=== PATIENT | male | born 1975 | race Caucasian/White ===

== ENCOUNTER 2021-06-10 21:29 | Emergency (ER) | payer OTHER ==
[~2021-06-10] VITALS: Ht 182.9 cm; Wt 114.8 kg
[~2021-06-10 21:29] MED LIST: PROT40 PO
[2021-06-10 21:53] VITALS: BP 133/71
[2021-06-10] MEDS ORDERED: ONDANSETRON HCL 4MG/2ML INJ IV STA (22:45)
[2021-06-10 23:25] LABS: BASOPHILS % 0.5 % (0.0-2.0); EOSINOPHILS % 2.3 % (0.0-5.0); HEMATOCRIT. 40.3 % (42.0-52.0); HEMOGLOBIN. 13.6 g/dL (14.0-18.0); LYMPHOCYTES % 48.1 % (20.0-50.0); MEAN CORPUSCULAR HEMOGLOBIN 33.7 pg (28.0-32.0); MEAN CORPUSCULAR VOLUME 99.6 fL (80.0-94.0); MEAN PLATELET VOLUME 10.3 fl (7.4-10.4); MONOCYTES % 7.1 % (2.0-8.0); PLATELET 61 x1000/uL (130-400); RED BLOOD CELL COUNT 4.05 mill/uL (4.7-6.1); RED CELL DISTRIBUTION WIDTH 14.7 % (11.6-14.6)
[2021-06-10 23:31] LABS: CHLORIDE 108 mEq/L (98-107)
[2021-06-10 23:34] LABS: INR 1.6; PROTHROMBIN TIME 16.1 sec (9.6-11.0)
== END 2021-06-11 01:58 | disposition home or self-care (01) ==
LOC: ER 21:29
DX: R10.9 Unspecified abdominal pain (principal); K62.5 Hemorrhage of anus and rectum; D64.9 Anemia, unspecified; D69.6 Thrombocytopenia, unspecified; F10.10 Alcohol abuse, uncomplicated; Y90.9 Presence of alcohol in blood, level not specified; Z98.890 Other specified postprocedural states; Z87.891 Personal history of nicotine dependence
CPT/HCPCS: 36415; 71045; 80053; 82270; 83690; 85025; 85610; 86850; 86900; 86901; 96374; 99284; J2405

== ENCOUNTER 2022-05-23 20:30 | Inpatient (IN) | payer MEDICAID, OTHER ==
[~2022-05-23] VITALS: Ht 182.9 cm; Wt 97.5 kg
[2022-05-23] MEDS ORDERED: ONDANSETRON HCL 4MG/2ML INJ IV STA (23:26)
[2022-05-23] MEDS ORDERED: MAGNESIUM/ALUMINUM HYDROXIDE/SIMETHICONE 30ML UDC PO STA (23:26)
[2022-05-23] MEDS ORDERED: SODIUM CHLORIDE 0.9% 1,000 ML IV ONE (23:30)
[2022-05-23 23:54] LABS: BASOPHILS % 1.1 % (0.0-2.0); EOSINOPHILS % 2.5 % (0.0-5.0); HEMATOCRIT. 32.6 % (42.0-52.0); HEMOGLOBIN. 11.5 g/dL (14.0-18.0); LYMPHOCYTES % 45.4 % (20.0-50.0); MEAN CORPUSCULAR HEMOGLOBIN 35.5 pg (28.0-32.0); MEAN PLATELET VOLUME 10.4 fl (7.4-10.4); RED BLOOD CELL COUNT 3.23 mill/uL (4.7-6.1); RED CELL DISTRIBUTION WIDTH 15.7 % (11.6-14.6)
[2022-05-23 23:55] LABS: CLARITY URINE CLEAR (CLEAR); COLOR URINE DARK YELLOW (YELLOW); KETONES URINE TRACE (NEGATIVE); LEUKOCYTE ESTERASE URINE NEGATIVE (NEGATIVE); NITRITE URINE NEGATIVE (NEGATIVE); OCCULT BLOOD URINE NEGATIVE (NEGATIVE); PH URINE 5.5 (4.5-8.0); PROTEIN URINE NEGATIVE (NEGATIVE); SPECIFIC GRAVITY URINE 1.017 (1.005-1.030)
[2022-05-24 00:05] LABS: CHLORIDE 113 mEq/L (98-107)
[2022-05-24 00:11] LABS: *AMPHETAMINES SCREEN URINE NEGATIVE (NEGATIVE); *BARBITURATES SCREEN URINE NEGATIVE (NEGATIVE); *BENZODIAZEPINES SCREEN URINE NEGATIVE (NEGATIVE); *COCAINE SCREEN URINE NEGATIVE (NEGATIVE); CANNABINOID URINE SCREEN NEGATIVE (NEGATIVE); METHADONE URINE SCREEN NEGATIVE (NEGATIVE); OPIATES URINE SCREEN NEGATIVE (NEGATIVE); PHENCYCLIDINE URINE SCREEN NEGATIVE (NEGATIVE)
[2022-05-24 00:11] LABS: ETHANOL BLOOD 245 mg/dL
[2022-05-24] MEDS ORDERED: PANTOPRAZOLE SODIUM 40 MG/VIAL IV ONE (00:15)
[2022-05-24 00:21] LABS: PLATELET 49 x1000/uL (130-400)
[2022-05-24 00:25] LABS: PROTHROMBIN TIME 20.3 sec (9.6-11.0)
[2022-05-24] MEDS ORDERED: FUROSEMIDE 40MG/4ML VIAL IVP NR (04:20)
[2022-05-24] MEDS ORDERED: NA PHOS,M-B/NA PHOS,DI-BA ENEMA 118ML PR PRN (05:30)
[2022-05-24] MEDS ORDERED: MAGNESIUM/ALUMINUM HYDROXIDE/SIMETHICONE 30ML UDC PO PRN (05:30)
[2022-05-24] MEDS ORDERED: IPRATROPIUM/ALBUTEROL 0.5-3(2.5)MG/3ML NEB HHN PRN (05:30)
[2022-05-24] MEDS ORDERED: GUAIFENESIN 200MG/10ML SUGAR FREE UDC PO PRN (05:30)
[2022-05-24] MEDS ORDERED: ACETAMINOPHEN 325MG TABLET PO PRN ×2 (05:30)
[2022-05-24] MEDS ORDERED: HYDROCODONE/ACETAMINOPHEN 5/325MG TABLET PO PRN (05:30)
[2022-05-24] MEDS ORDERED: DOCUSATE SODIUM 100MG CAPSULE PO PRN (05:30)
[2022-05-24] MEDS ORDERED: HYDROCODONE/APAP 7.5/325MG 1 TAB TABLET PO PRN (05:30)
[2022-05-24] MEDS ORDERED: CLONIDINE 0.1MG TABLET PO PRN (05:30)
[2022-05-24] MEDS ORDERED: DIPHENHYDRAMINE 50MG/ML VIAL IV PRN (05:30)
[2022-05-24] MEDS ORDERED: NALOXONE HCL 0.4MG/ML VIAL IV PRN (06:00)
[2022-05-24 06:14] LABS: BASOPHILS % 0.5 % (0.0-2.0); EOSINOPHILS % 2.5 % (0.0-5.0); HEMATOCRIT. 31.4 % (42.0-52.0); MEAN CORPUSCULAR HEMOGLOBIN 35.7 pg (28.0-32.0); MEAN CORPUSCULAR VOLUME 101.6 fL (80.0-94.0); MEAN PLATELET VOLUME 9.9 fl (7.4-10.4); RED BLOOD CELL COUNT 3.09 mill/uL (4.7-6.1); RED CELL DISTRIBUTION WIDTH 15.3 % (11.6-14.6)
[2022-05-24 06:18] LABS: PLATELET 34 x1000/uL (130-400)
[2022-05-24 06:26] LABS: PHOSPHORUS 2.8 mg/dL (2.5-4.9)
[2022-05-24] MEDS: SODIUM CHLORIDE 0.9% 1,000 ML IV SCH ×2 (06:29→17:52)
[2022-05-24 06:54] LABS: CHLORIDE 110 mEq/L (98-107); LDL CHOLESTEROL 19 mg/dL (5-100); T4 FREE 1.14 ng/dL (0.76-1.46)
[2022-05-24 07:24] LABS: HDL CHOLESTEROL 30 mg/dL (40-59)
[2022-05-24] MEDS: ONDANSETRON HCL 4MG/2ML INJ IV PRN (08:57)
[2022-05-24] MEDS: FOLIC ACID 1MG TABLET PO SCH (09:59)
[2022-05-24] MEDS: THIAMINE HCL 100MG TABLET PO SCH (09:59)
[2022-05-24] MEDS: MULTIVITAMINS,THER W-MINERALS TABLET PO SCH (09:59)
[2022-05-24 11:19] LABS: PLATELET ESTIMATE MARKEDLY DECREASED
[2022-05-24 12:07] LABS: HEPATITIS B SURFACE ANTIGEN NEGATIVE
[2022-05-24] MEDS ORDERED: POTASSIUM CHLORIDE 20MEQ/PACKET PO NR ×2 (16:15→23:00)
[2022-05-24 16:50] VITALS: BP 110/65
[2022-05-24 17:00] VITALS: BP 127/69
[2022-05-24] MEDS ORDERED: LORAZEPAM 2MG/ML CPJ IV PRN (17:30)
[2022-05-24] MEDS: SUCRALFATE 1G TABLET PO SCH ×3 (17:52→21:24)
[2022-05-24] MEDS ORDERED: OCTREOTIDE 1,000 MCG in SODIUM CHLORIDE 0.9% 98 ML IV ONE (18:00)
[2022-05-24] MEDS ORDERED: MAGNESIUM 1 G PREMIX 100 ML IV NR (18:00)
[2022-05-24] MEDS: PANTOPRAZOLE SODIUM 40 MG/VIAL IV SCH (18:00)
[2022-05-24 20:00] VITALS: BP 130/71
[2022-05-24] MEDS ORDERED: PANTOPRAZOLE SODIUM 40 MG/VIAL IV SCH (21:00)
[2022-05-24 21:50] VITALS: BP 130/71
[2022-05-24 22:05] VITALS: BP 127/66
[2022-05-24 23:05] VITALS: BP 120/65
[2022-05-25] VITALS (14 sets, daily range): BP systolic 111–146; BP diastolic 50–85
[2022-05-25] MEDS: SODIUM CHLORIDE 0.9% 1,000 ML IV SCH ×3 (00:55→20:44)
[2022-05-25 03:36] LABS: BASOPHILS % 0.7 % (0.0-2.0); EOSINOPHILS % 2.2 % (0.0-5.0); HEMATOCRIT. 29.4 % (42.0-52.0); HEMOGLOBIN. 10.4 g/dL (14.0-18.0); LYMPHOCYTES % 31.6 % (20.0-50.0); MEAN CORPUSCULAR HEMOGLOBIN 36.2 pg (28.0-32.0); MEAN CORPUSCULAR VOLUME 102.3 fL (80.0-94.0); MEAN PLATELET VOLUME 10.3 fl (7.4-10.4); MONOCYTES % 4.9 % (2.0-8.0); NEUTROPHILS % 60.6 % (40.0-76.0); RED BLOOD CELL COUNT 2.87 mill/uL (4.7-6.1); RED CELL DISTRIBUTION WIDTH 15.1 % (11.6-14.6)
[2022-05-25 03:44] LABS: INR 1.8; PROTHROMBIN TIME 18.8 sec (9.6-11.0)
[2022-05-25 03:46] LABS: PLATELET 37 x1000/uL (130-400)
[2022-05-25 04:06] LABS: CHLORIDE 109 mEq/L (98-107)
[2022-05-25] MEDS: SUCRALFATE 1G TABLET PO SCH ×4 (07:40→20:41)
[2022-05-25] MEDS ORDERED: LACTULOSE 300 ML in WATER FOR IRRIGATION,STERILE 700 ML IR NR (08:00)
[2022-05-25] MEDS: FOLIC ACID 1MG TABLET PO SCH (09:00)
[2022-05-25] MEDS: FUROSEMIDE 40MG/4ML VIAL IV SCH (09:00)
[2022-05-25] MEDS: MULTIVITAMINS,THER W-MINERALS TABLET PO SCH (09:00)
[2022-05-25] MEDS: THIAMINE HCL 100MG TABLET PO SCH (09:00)
[2022-05-25] MEDS ORDERED: PANTOPRAZOLE SODIUM 40 MG/VIAL IV SCH (09:00)
[2022-05-25] MEDS: ONDANSETRON HCL 4MG/2ML INJ IV PRN (09:05)
[2022-05-25] MEDS: PANTOPRAZOLE SODIUM 40 MG/VIAL IV SCH ×2 (09:05→17:07)
[2022-05-25] MEDS ORDERED: PHYTONADIONE 10MG/ML AMP SUBCUT NR (09:30)
[2022-05-25] MEDS ORDERED: SIMETHICONE 40 MG/0.6 ML 15ML ONE (12:37)
[2022-05-25] MEDS ORDERED: PROPOFOL 10 MG/ML IV ONE (12:50)
[2022-05-25] MEDS ORDERED: PROPOFOL 200MG/20ML VIAL IV ONE ×3 (12:50→12:59)
[2022-05-25] MEDS ORDERED: LABETALOL 5MG/ML SYR 20 MG/4 ML SYRINGE IV PRN (13:15)
[2022-05-25] MEDS ORDERED: HYDROMORPHONE HCL/PF 2MG/ML CPJ IV PRN (13:15)
[2022-05-25] MEDS ORDERED: MEPERIDINE HCL/PF 25MG/ML CPJ IV PRN (13:15)
[2022-05-25] MEDS ORDERED: ONDANSETRON HCL 4MG/2ML INJ IV PRN (13:15)
[2022-05-26] VITALS: BP 109/64
[2022-05-26 04:00] VITALS: BP 115/62
[2022-05-26 07:18] LABS: BASOPHILS % 0.7 % (0.0-2.0); EOSINOPHILS % 4.5 % (0.0-5.0); HEMATOCRIT. 29.6 % (42.0-52.0); HEMOGLOBIN. 10.6 g/dL (14.0-18.0); LYMPHOCYTES % 40.1 % (20.0-50.0); MEAN CORPUSCULAR HEMOGLOBIN 36.8 pg (28.0-32.0); MEAN CORPUSCULAR VOLUME 102.7 fL (80.0-94.0); MEAN PLATELET VOLUME 10.1 fl (7.4-10.4); MONOCYTES % 6.6 % (2.0-8.0); NEUTROPHILS % 48.1 % (40.0-76.0); RED BLOOD CELL COUNT 2.89 mill/uL (4.7-6.1); RED CELL DISTRIBUTION WIDTH 15.3 % (11.6-14.6)
[2022-05-26 08:01] LABS: PLATELET 37 x1000/uL (130-400)
[2022-05-26] MEDS: SODIUM CHLORIDE 0.9% 1,000 ML IV SCH (08:25)
[2022-05-26] MEDS: FUROSEMIDE 40MG/4ML VIAL IV SCH (08:27)
[2022-05-26] MEDS: THIAMINE HCL 100MG TABLET PO SCH (08:27)
[2022-05-26] MEDS: PANTOPRAZOLE SODIUM 40 MG/VIAL IV SCH (08:27)
[2022-05-26] MEDS: FOLIC ACID 1MG TABLET PO SCH (08:41)
[2022-05-26] MEDS: MULTIVITAMINS,THER W-MINERALS TABLET PO SCH (08:41)
[2022-05-26] MEDS: SUCRALFATE 1G TABLET PO SCH ×2 (08:41→12:22)
[2022-05-26 09:34] LABS: CHLORIDE 109 mEq/L (98-107)
[2022-05-26 09:43] LABS: PHOSPHORUS 1.6 mg/dL (2.5-4.9)
[2022-05-26 12:24] VITALS: BP 128/77
[2022-05-26] MEDS ORDERED: LACTULOSE 20G/30ML UDC PO SCH (14:00)
[2022-05-26] MEDS ORDERED: POTASSIUM CHLORIDE 20MEQ TABLET SR PO NR (14:00)
[2022-05-26] MEDS ORDERED: PROT40 PO (14:04)
[2022-05-26] MEDS ORDERED: SUCR1TAB30 PO (14:04)
[2022-05-26] MEDS ORDERED: COR3 PO ×2 (14:04)
[2022-05-26] MEDS ORDERED: FOLI-43 PO (14:04)
[2022-05-26] MEDS ORDERED: THIA100T72 PO (14:04)
[2022-05-26] MEDS ORDERED: FURO-152 PO (14:04)
[2022-05-26] MEDS ORDERED: POTASSIUM-SODIUM PHOSPHATE POWDER PACKET PO NR (16:15)
[2022-05-26] MEDS ORDERED: CARVEDILOL 3.125 MG TABLET PO SCH (17:00)
== END 2022-05-26 16:25 | disposition home or self-care (01) | DRG 241 ==
LOC: ER 20:30 → 7WST 05-24 02:31 → SUPCPDRO 05-24 09:16 → ENRESERV 05-24 14:38
PROVIDERS: ADMIT Internal Medicine; ATTEND Internal Medicine
PROC: 30233R1 Transfusion of Nonautologous Platelets into Peripheral Vein, Percutaneous Approach (ICD-10-PCS; 2022-05-24)
PROC: 0DB78ZX Excision of Stomach, Pylorus, Via Natural or Artificial Opening Endoscopic, Diagnostic (ICD-10-PCS; principal; 2022-05-25)
PROC: 30233K1 Transfusion of Nonautologous Frozen Plasma into Peripheral Vein, Percutaneous Approach (ICD-10-PCS; 2022-05-25)
DX: K29.71 Gastritis, unspecified, with bleeding (principal); I85.11 Secondary esophageal varices with bleeding; E43 Unspecified severe protein-calorie malnutrition; K76.6 Portal hypertension; D69.6 Thrombocytopenia, unspecified; K70.30 Alcoholic cirrhosis of liver without ascites; E83.39 Other disorders of phosphorus metabolism; K42.9 Umbilical hernia without obstruction or gangrene; K31.89 Other diseases of stomach and duodenum; E87.6 Hypokalemia; F10.10 Alcohol abuse, uncomplicated; Z20.822 Contact with and (suspected) exposure to COVID-19; Y90.8 Blood alcohol level of 240 mg/100 ml or more; K05.10 Chronic gingivitis, plaque induced; T47.1X6A Underdosing of other antacids and anti-gastric-secretion drugs, initial encounter; Y92.89 Other specified places as the place of occurrence of the external cause; Z91.14 Patient's other noncompliance with medication regimen; Z72.0 Tobacco use; Z71.6 Tobacco abuse counseling; Z79.899 Other long term (current) drug therapy; Z71.41 Alcohol abuse counseling and surveillance of alcoholic; Z68.29 Body mass index [BMI] 29.0-29.9, adult; K74.60 Unspecified cirrhosis of liver
CPT/HCPCS: 36415; 71045; 76705; 80048; 80053; 80061; 80076; 80305; 80320; 81003; 82140; 83036; 83735; 83880; 84100; 84425; 84439; 84443; 84481; 84484; 85018; 85025; 86705; 86709; 86803; 86850; 86900; 86927; 86945; 87340; 87426; 88305; 88312; 88313; 93005; 99285; C9113; J1940; J2354; J2405; J2704; J3475; J7030; J7050; P9017; P9034; G0480

== ENCOUNTER 2022-05-28 03:56 | Inpatient (IN) | payer MEDICAID, OTHER ==
[~2022-05-28] VITALS: Ht 182.9 cm; Wt 72.6 kg
[~2022-05-28 03:56] MED LIST changes: +COR3 PO; +FOLI-43 PO; +FURO-152 PO; +SUCR1TAB30 PO; +THIA100T72 PO
[2022-05-28] MEDS ORDERED: ONDANSETRON HCL 4MG/2ML INJ IV STA (05:25)
[2022-05-28] MEDS ORDERED: SODIUM CHLORIDE 0.9% 1,000 ML IV ONE (05:30)
[2022-05-28 05:44] LABS: BASOPHILS % 0.8 % (0.0-2.0); EOSINOPHILS % 3.4 % (0.0-5.0); HEMATOCRIT. 35.4 % (42.0-52.0); HEMOGLOBIN. 12.2 g/dL (14.0-18.0); LYMPHOCYTES % 26.4 % (20.0-50.0); MEAN CORPUSCULAR HEMOGLOBIN 35.3 pg (28.0-32.0); MEAN CORPUSCULAR VOLUME 102.3 fL (80.0-94.0); MEAN PLATELET VOLUME 9.5 fl (7.4-10.4); MONOCYTES % 9.4 % (2.0-8.0); PLATELET 54 x1000/uL (130-400); RED BLOOD CELL COUNT 3.46 mill/uL (4.7-6.1); RED CELL DISTRIBUTION WIDTH 15.7 % (11.6-14.6)
[2022-05-28 05:49] LABS: CHLORIDE 107 mEq/L (98-107)
[2022-05-28 05:53] LABS: INR 2.1; PROTHROMBIN TIME 21.6 sec (9.6-11.0)
[2022-05-28 05:58] LABS: ETHANOL BLOOD < 10 mg/dL
[2022-05-28 09:23] LABS: CLARITY URINE CLEAR (CLEAR); COLOR URINE DARK YELLOW (YELLOW); KETONES URINE TRACE (NEGATIVE); LEUKOCYTE ESTERASE URINE TRACE (NEGATIVE); NITRITE URINE NEGATIVE (NEGATIVE); OCCULT BLOOD URINE NEGATIVE (NEGATIVE); PH URINE 5.5 (4.5-8.0); PROTEIN URINE TRACE (NEGATIVE); SPECIFIC GRAVITY URINE 1.021 (1.005-1.030)
[2022-05-28] MEDS ORDERED: LORAZEPAM 2MG/ML CPJ IV NR (10:15)
[2022-05-28] MEDS ORDERED: PANTOPRAZOLE SODIUM 40 MG/VIAL IV NR (11:00)
[2022-05-28] MEDS: PANTOPRAZOLE 80 MG in SODIUM CHLORIDE 0.9% 100 ML IV SCH ×2 (11:29→22:03)
[2022-05-28] MEDS ORDERED: OCTREOTIDE ACETATE 50 MCG/ML 1ML SUBCUT SCH (11:30)
[2022-05-28] MEDS ORDERED: PANTOPRAZOLE 80 MG in SODIUM CHLORIDE 0.9% 100 ML IV SCH (11:30)
[2022-05-28] MEDS ORDERED: OCTREOTIDE ACETATE 50 MCG/ML 1ML IV SCH (11:34)
[2022-05-28] MEDS: OCTREOTIDE 1,000 MCG in SODIUM CHLORIDE 0.9% 100 ML IV SCH (12:04)
[2022-05-28 12:05] LABS: BASOPHILS % 0.4 % (0.0-2.0); EOSINOPHILS % 1.9 % (0.0-5.0); HEMATOCRIT. 33.3 % (42.0-52.0); HEMOGLOBIN. 11.8 g/dL (14.0-18.0); LYMPHOCYTES % 24.2 % (20.0-50.0); MEAN CORPUSCULAR VOLUME 101.2 fL (80.0-94.0); MEAN PLATELET VOLUME 9.2 fl (7.4-10.4); MONOCYTES % 6.9 % (2.0-8.0); NEUTROPHILS % 66.6 % (40.0-76.0); RED BLOOD CELL COUNT 3.29 mill/uL (4.7-6.1); RED CELL DISTRIBUTION WIDTH 15.1 % (11.6-14.6)
[2022-05-28 12:17] LABS: CHLORIDE 109 mEq/L (98-107)
[2022-05-28 13:01] LABS: PLATELET 46 x1000/uL (130-400); PLATELET ESTIMATE MARKEDLY DECREASED
[2022-05-28] MEDS ORDERED: LACTULOSE 300 ML in WATER FOR IRRIGATION,STERILE 700 ML IR ONE ×2 (13:15→14:30)
[2022-05-28] MEDS: ONDANSETRON HCL 4MG/2ML INJ IV PRN (14:27)
[2022-05-28] MEDS: LACTULOSE 20G/30ML UDC PO SCH ×3 (14:31→22:03)
[2022-05-28] MEDS ORDERED: PHYTONADIONE 10MG/ML AMP SUBCUT SCH (15:15)
[2022-05-28] MEDS ORDERED: DOCUSATE SODIUM 100MG CAPSULE PO PRN (15:30)
[2022-05-28] MEDS ORDERED: LORAZEPAM 0.5MG TABLET PO PRN (15:30)
[2022-05-28] MEDS ORDERED: IPRATROPIUM/ALBUTEROL 0.5-3(2.5)MG/3ML NEB HHN PRN (15:30)
[2022-05-28] MEDS ORDERED: HYDROCODONE/ACETAMINOPHEN 5/325MG TABLET PO PRN (15:30)
[2022-05-28] MEDS ORDERED: ONDANSETRON HCL 4MG/2ML INJ IV PRN (15:30)
[2022-05-28] MEDS ORDERED: CLONIDINE 0.1MG TABLET PO PRN (15:30)
[2022-05-28] MEDS ORDERED: NALOXONE HCL 0.4MG/ML VIAL IV PRN (15:30)
[2022-05-28] MEDS ORDERED: ACETAMINOPHEN 325MG TABLET PO PRN ×2 (15:30)
[2022-05-28 15:42] LABS: PHOSPHORUS 2.4 mg/dL (2.5-4.9)
[2022-05-28] MEDS: PANTOPRAZOLE SODIUM 40 MG/VIAL IV SCH ×2 (15:50→18:05)
[2022-05-28 15:57] LABS: FERRITIN 185 ng/mL (22-322)
[2022-05-28 22:00] VITALS: BP 129/79
[2022-05-28] MEDS: SUCRALFATE 1 G/10 ML UDC PO SCH (22:07)
[2022-05-28 22:38] VITALS: BP 125/87
[2022-05-28 23:00] VITALS: BP 134/83
[2022-05-29] VITALS (27 sets, daily range): BP systolic 101–159; BP diastolic 42–88
[2022-05-29] MEDS: OCTREOTIDE 1,000 MCG in SODIUM CHLORIDE 0.9% 100 ML IV SCH (06:32)
[2022-05-29] MEDS: LACTULOSE 20G/30ML UDC PO SCH ×3 (06:32→21:19)
[2022-05-29] MEDS: SUCRALFATE 1 G/10 ML UDC PO SCH ×4 (08:02→21:17)
[2022-05-29] MEDS: ONDANSETRON HCL 4MG/2ML INJ IV PRN (08:02)
[2022-05-29] MEDS: PANTOPRAZOLE 80 MG in SODIUM CHLORIDE 0.9% 100 ML IV SCH ×2 (08:02→17:36)
[2022-05-29 08:45] LABS: BASOPHILS % 1.1 % (0.0-2.0); EOSINOPHILS % 3.6 % (0.0-5.0); LYMPHOCYTES % 37.7 % (20.0-50.0); MEAN CORPUSCULAR HEMOGLOBIN 35.6 pg (28.0-32.0); MEAN CORPUSCULAR VOLUME 103.3 fL (80.0-94.0); MEAN PLATELET VOLUME 9.1 fl (7.4-10.4); MONOCYTES % 9.8 % (2.0-8.0); NEUTROPHILS % 47.8 % (40.0-76.0); PLATELET 52 x1000/uL (130-400); RED BLOOD CELL COUNT 2.81 mill/uL (4.7-6.1); RED CELL DISTRIBUTION WIDTH 15.9 % (11.6-14.6)
[2022-05-29 09:45] LABS: *AMPHETAMINES SCREEN URINE NEGATIVE (NEGATIVE); *BARBITURATES SCREEN URINE NEGATIVE (NEGATIVE); *BENZODIAZEPINES SCREEN URINE NEGATIVE (NEGATIVE); *COCAINE SCREEN URINE NEGATIVE (NEGATIVE); CANNABINOID URINE SCREEN NEGATIVE (NEGATIVE); METHADONE URINE SCREEN NEGATIVE (NEGATIVE); OPIATES URINE SCREEN NEGATIVE (NEGATIVE); PHENCYCLIDINE URINE SCREEN NEGATIVE (NEGATIVE)
[2022-05-29] MEDS: SODIUM CHLORIDE 0.9% 1,000 ML IV SCH ×2 (10:40→22:57)
[2022-05-29 13:13] LABS: INR 2.2; PROTHROMBIN TIME 21.9 sec (9.6-11.0)
[2022-05-29 13:14] LABS: BASOPHILS % 1.1 % (0.0-2.0); HEMOGLOBIN. 10.6 g/dL (14.0-18.0); LYMPHOCYTES % 35.1 % (20.0-50.0); MEAN CORPUSCULAR VOLUME 102.5 fL (80.0-94.0); MEAN PLATELET VOLUME 9.9 fl (7.4-10.4); MONOCYTES % 10.5 % (2.0-8.0); NEUTROPHILS % 49.3 % (40.0-76.0); PLATELET 55 x1000/uL (130-400); RED BLOOD CELL COUNT 2.93 mill/uL (4.7-6.1)
[2022-05-29 13:15] LABS: CHLORIDE 112 mEq/L (98-107)
[2022-05-29] MEDS ORDERED: KCL 20MEQ/100ML PREMIX 100 ML IV NR (14:00)
[2022-05-29] MEDS: PHYTONADIONE 10MG/ML AMP SUBCUT SCH (15:51)
[2022-05-29] MEDS: CARVEDILOL 3.125 MG TABLET PO SCH (21:17)
[2022-05-30] VITALS (10 sets, daily range): BP systolic 111–129; BP diastolic 31–88
[2022-05-30 02:09] LABS: VITAMIN B12 SERUM 1650 pg/mL (211-911)
[2022-05-30] MEDS: PANTOPRAZOLE 80 MG in SODIUM CHLORIDE 0.9% 100 ML IV SCH (02:30)
[2022-05-30] MEDS: OCTREOTIDE 1,000 MCG in SODIUM CHLORIDE 0.9% 100 ML IV SCH (03:30)
[2022-05-30 05:46] LABS: EOSINOPHILS % 4.1 % (0.0-5.0); HEMATOCRIT. 26.8 % (42.0-52.0); HEMOGLOBIN. 9.6 g/dL (14.0-18.0); LYMPHOCYTES % 47.5 % (20.0-50.0); MEAN CORPUSCULAR HEMOGLOBIN 36.1 pg (28.0-32.0); MEAN CORPUSCULAR VOLUME 100.8 fL (80.0-94.0); MEAN PLATELET VOLUME 9.1 fl (7.4-10.4); MONOCYTES % 11.7 % (2.0-8.0); NEUTROPHILS % 35.7 % (40.0-76.0); RED BLOOD CELL COUNT 2.66 mill/uL (4.7-6.1); RED CELL DISTRIBUTION WIDTH 15.7 % (11.6-14.6)
[2022-05-30 05:49] LABS: INR 2.2; PROTHROMBIN TIME 21.9 sec (9.6-11.0)
[2022-05-30 06:03] LABS: PLATELET 47 x1000/uL (130-400)
[2022-05-30 06:30] LABS: CHLORIDE 107 mEq/L (98-107)
[2022-05-30] MEDS: LACTULOSE 20G/30ML UDC PO SCH (06:55)
[2022-05-30] MEDS: CARVEDILOL 3.125 MG TABLET PO SCH (09:00)
[2022-05-30] MEDS: SUCRALFATE 1 G/10 ML UDC PO SCH (09:17)
[2022-05-30] MEDS: PHYTONADIONE 10MG/ML AMP SUBCUT SCH (09:17)
[2022-05-30] MEDS ORDERED: POTASSIUM CHLORIDE 20MEQ TABLET SR PO NR (10:45)
[2022-05-30] MEDS ORDERED: LACT10SO3 MT (10:46)
[2022-05-30] MEDS ORDERED: PROT40 PO (10:46)
[2022-05-30] MEDS ORDERED: RIFA550T PO (10:46)
[2022-05-30] MEDS ORDERED: COR3 PO (10:46)
[2022-05-30] MEDS: SODIUM CHLORIDE 0.9% 1,000 ML IV SCH (11:15)
[2022-05-30] MEDS ORDERED: RIFAXIMIN 550 MG TABLET PO SCH (21:00)
== END 2022-05-30 13:30 | disposition home or self-care (01) | DRG 253 ==
LOC: ER 03:56 → CVICU 06:20 → EDBEDREQ 06:24 → EDBEDREQTM 06:24 → EDBEDREQSVC 06:24 → ENRESERV 07:15 → EDBEDREQSVC 10:24 → CVICU 21:28
PROVIDERS: ADMIT Internal Medicine; ATTEND Internal Medicine
PROC: 30233K1 Transfusion of Nonautologous Frozen Plasma into Peripheral Vein, Percutaneous Approach (ICD-10-PCS; principal; 2022-05-28)
PROC: 30233R1 Transfusion of Nonautologous Platelets into Peripheral Vein, Percutaneous Approach (ICD-10-PCS; 2022-05-29)
DX: K92.2 Gastrointestinal hemorrhage, unspecified (principal); G92.8 Other toxic encephalopathy; E43 Unspecified severe protein-calorie malnutrition; E72.20 Disorder of urea cycle metabolism, unspecified; D68.4 Acquired coagulation factor deficiency; D68.59 Other primary thrombophilia; D69.6 Thrombocytopenia, unspecified; K76.82 Hepatic encephalopathy; E87.6 Hypokalemia; I10 Essential (primary) hypertension; K42.9 Umbilical hernia without obstruction or gangrene; F10.20 Alcohol dependence, uncomplicated; D53.9 Nutritional anemia, unspecified; K70.30 Alcoholic cirrhosis of liver without ascites; T47.1X6A Underdosing of other antacids and anti-gastric-secretion drugs, initial encounter; Z68.21 Body mass index [BMI] 21.0-21.9, adult; Y92.89 Other specified places as the place of occurrence of the external cause; Z87.891 Personal history of nicotine dependence; Z91.14 Patient's other noncompliance with medication regimen; Z79.899 Other long term (current) drug therapy; Z71.41 Alcohol abuse counseling and surveillance of alcoholic; Z87.11 Personal history of peptic ulcer disease
CPT/HCPCS: 36415; 71045; 76700; 80048; 80053; 80076; 80305; 80320; 81003; 82140; 82248; 82607; 82728; 82746; 83735; 84100; 85025; 86850; 86900; 86920; 86927; 99285; C9113; J2060; J2354; J2405; J3430; J3480; J7030; J7050; P9017; P9034; G0480

== ENCOUNTER 2023-02-07 13:36 | Emergency (ER) | payer MEDICAID, OTHER ==
[~2023-02-07] VITALS: Ht 182.9 cm; Wt 101.0 kg
[~2023-02-07 13:36] MED LIST changes: +LACT10SO3 MT; +RIFA550T PO
[2023-02-07 13:50] VITALS: BP 143/75; PULSE 79; RESP 18; TEMP 98.4; O2SAT 99
[2023-02-07] MEDS ORDERED: AMOXICILLIN/POTASSIUM CLAVULANATE 875/125MG TAB PO ONE (18:45)
[2023-02-07 19:13] LABS: BASOPHILS % 0.7 % (0.0-2.0); EOSINOPHILS % 3.2 % (0.0-5.0); HEMATOCRIT. 33.7 % (42.0-52.0); HEMOGLOBIN. 11.2 g/dL (14.0-18.0); LYMPHOCYTES % 39.9 % (20.0-50.0); MEAN CORPUSCULAR HEMOGLOBIN 30.6 pg (28.0-32.0); MEAN CORPUSCULAR VOLUME 92.2 fL (80.0-94.0); MEAN PLATELET VOLUME 8.3 fl (7.4-10.4); MONOCYTES % 9.2 % (2.0-8.0); PLATELET 59 x1000/uL (130-400); RED BLOOD CELL COUNT 3.65 mill/uL (4.7-6.1); RED CELL DISTRIBUTION WIDTH 16.7 % (11.6-14.6)
[2023-02-07 19:19] LABS: CHLORIDE 108 mEq/L (98-107)
[2023-02-07] MEDS ORDERED: AMOXICILLIN/POTASSIUM CLAVULANATE 875/125MG TAB PO NR (20:33)
[2023-02-07] MEDS ORDERED: CEPH500C2 MT (20:39)
== END 2023-02-07 20:47 | disposition home or self-care (01) ==
LOC: ER 13:36
DX: L03.116 Cellulitis of left lower limb (principal); K74.60 Unspecified cirrhosis of liver
CPT/HCPCS: 36415; 80053; 83605; 85025; 93971; 99284